=== PATIENT | female | born 1985 | race African-American/Black ===

== ENCOUNTER 2020-09-05 08:45 | Emergency (ER) | payer MEDICAID ==
[~2020-09-05] VITALS: Ht 149.9 cm; Wt 70.3 kg
[2020-09-05 09:19] VITALS: BP 157/99
[2020-09-05] MEDS ORDERED: METHOCARBAMOL 500 MG TAB PO ONE (10:15)
[2020-09-05] MEDS ORDERED: IBUPROFEN 600 MG TAB PO ONE (10:15)
== END 2020-09-05 11:44 | disposition home or self-care (01) ==
LOC: ER 08:45
DX: M54.16 Radiculopathy, lumbar region (principal); Z32.02 Encounter for pregnancy test, result negative
CPT/HCPCS: 81002; 81025